=== PATIENT | female | born 1990 | race Caucasian/White ===

== ENCOUNTER 2016-10-23 16:50 | Emergency (ER) | payer SELFPAY ==
[~2016-10-23] VITALS: Ht 167.6 cm; Wt 46.3 kg
[2016-10-23 17:06] VITALS: BP 132/83
[2016-10-23] MEDS ORDERED: IBUPROFEN 400 MG TABLET PO ONE (17:30)
[2016-10-23] MEDS ORDERED: IBUPROFEN 600 MG TABLET PO ONE (17:32)
[2016-10-23 17:47] LABS: PREGNANCY TEST URINE QUAL NEGATIVE (NEGATIVE)
[2016-10-23 17:55] LABS: APPEARANCE,URINE CLOUDY (CLEAR)
[2016-10-23 17:56] LABS: COLOR,URINE YELLOW (YELLOW); PROTEIN,URINE 1+ mg/dl (NEGATIVE); UGLUCOSE NEGATIVE (NEGATIVE)
[2016-10-23 17:57] LABS: BILIRUBIN,URINE NEGATIVE (NEGATIVE); BLOOD, URINE 3+ Ery/uL (NEGATIVE); KETONES,URINE NEGATIVE (NEGATIVE); UROBILINOGEN,URINE 0.2 EU/dL (0.2)
[2016-10-23 17:58] LABS: LEUKOCYTE ESTERASE ,URINE 3+ (NEGATIVE); NITRITE, URINE NEGATIVE (NEGATIVE)
[2016-10-23 18:00] LABS: BACTERIA,URINE Many /HPF (None Seen); SQUAMOUS EPITHELIAL CELL,UR Few /HPF (None Seen); WBC,URINE TOO NUMEROUS TO COUN /HPF (0-3)
== END 2016-10-23 18:12 | disposition home or self-care (01) ==
LOC: ER 16:53
DX: R10.30 Lower abdominal pain, unspecified (principal); R30.0 Dysuria
CPT/HCPCS: 81001; 84703; 87077; 87086; 99284; A4606; Z7610; 81000-TC